=== PATIENT | male | born 1945 | race Asian ===

== ENCOUNTER 2021-12-17 15:56 | Emergency (ER) | payer OTHER, SELFPAY ==
--- NOTE | ~2021-12-17 | CT_ITS ---
EXAMINATION: CT HEAD WITHOUT CONTRAST CLINICAL INFORMATION: Acute mental status change. Rule out stroke. COMPARISON: None TECHNIQUE: Contiguous axial imaging was performed from the skull base to vertex without intravenous administration of contrast. This CT examination was performed using dose optimization techniques as appropriate, variously including the following: *Automated exposure control *Adjustment of mA and/or kV according to patient size (this includes techniques or standardized protocols for targeted exams where dose is matched to indication/reason for exam; i.e. extremities or head) *Use of iterative reconstruction technique DLP: 692 mGy-cm FINDINGS: There is no evidence of an extra-axial collection. There is no evidence of intra-axial or extra-axial hemorrhage. The ventricles and extra-axial CSF spaces are prominent suggestive of generalized atrophy. There is nonspecific periventricular white matter disease. No mass, mass effect or infarct is seen. Review of bone windows is normal. Paranasal sinuses, mastoid air cells and middle ears are clear. CT/CT head/brain wo con IMPRESSION: No acute intracranial findings. Generalized atrophy and nonspecific periventricular white matter disease. Findings were communicated to Denisha Pelaez by telephone on 12/19/2021 at 3:48 PM.
--- NOTE | 2021-12-17 16:49 | ED_ITS ---
HPI - General Adult General Chief complaint: ETOH/Substance Use <MADELINE Lundberg Last Filed: 12/18/21 02:38> Stated complaint: SEC 12 BY [facility],ALCOHOLISM,NON MED COMPLIANT PER EMS <MADELINE Lundberg Last Filed: 12/18/21 02:38> Time Seen by Provider: 12/17/21 16:35 <MADELINE Lundberg - Last Filed: 12/18/21 02:38> Source: patient <MADELINE Lundberg Last Filed: 12/18/21 02:38> Mode of arrival: ambulatory <MADELINE Lundberg Last Filed: 12/18/21 02:38> Limitations: no limitations <MADELINE Lundberg Last Filed: 12/18/21 02:38> History of Present Illness HPI narrative: 76-year-old mother history of alcoholism presents to the ED for drinking alcohol and not being compliant with his psych medications. Patient was section by [facility] for evaluation. Patient denies any suicidal homicidal ideation. Patient denies any physical complaints. Patient admits to drinking alcohol today and regularly. Patient able to care for himself at home. <MADELINE Lundberg Last Filed: 12/18/21 02:38> Related Data Home medications: Home Medications Medication Instructions Recorded Confirmed No Known Home Meds 12/18/21 12/18/21 <MADELINE Lundberg - Last Filed: 12/18/21 02:38> Allergies/adverse reactions: Allergies Allergy/AdvReac Type Severity Reaction Status Date / Time No Known Allergies Allergy Verified 12/17/21 16:38 <MADELINE Lundberg Last Filed: 12/18/21 02:38> Review of Systems Review of Systems: Drinking alcohol not compliant with meds <MADELINE Lundberg Last Filed: 12/18/21 02:38> Yes all other systems are reviewed and are negative <MADELINE Lundberg Last Filed: 12/18/21 02:38> [facility] Social History Social History: Social History Alcohol intake: current Patient Tobacco Use Status: Current everyday Tobacco user Use of substances other than those prescribed or required for medical reasons: No Advance Directives: No Advance Directives Information Provided: No <MADELINE Lundberg Last Filed: 12/18/21 02:38> Physical Exam ED Vital Signs: Vital Signs - 24 hr 12/19/21 19:19 12/19/21 22:01 12/19/21 23:32 Temperature 98.1 F 98.3 F Pulse Rate 103 H 100 116 H Respiratory Rate 16 20 16 Blood Pressure 145/70 H 141/69 H 147/72 H Pulse Oximetry 97 97 97 Oxygen Delivery Method Room Air Room Air Room Air 12/20/21 07:49 12/20/21 11:44 Temperature Pulse Rate 100 105 H Respiratory Rate 16 18 Blood Pressure 138/74 150/68 H Pulse Oximetry 98 97 Oxygen Delivery Method Room Air Room Air BMI result Body Mass Index 27.4 <MADELINE Lundberg - Last Filed: 12/18/21 02:38> Vital Signs - 24 hr 12/19/21 19:19 12/19/21 22:01 12/19/21 23:32 Temperature 98.1 F 98.3 F Pulse Rate 103 H 100 116 H Respiratory Rate 16 20 16 Blood Pressure 145/70 H 141/69 H 147/72 H Pulse Oximetry 97 97 97 Oxygen Delivery Method Room Air Room Air Room Air 12/20/21 07:49 12/20/21 11:44 Temperature Pulse Rate 100 105 H Respiratory Rate 16 18 Blood Pressure 138/74 150/68 H Pulse Oximetry 98 97 Oxygen Delivery Method Room Air Room Air BMI result Body Mass Index 27.4 <MADELINE Elias - Last Filed: 12/18/21 11:26> Vital Signs - 24 hr 12/19/21 19:19 12/19/21 22:01 12/19/21 23:32 Temperature 98.1 F 98.3 F Pulse Rate 103 H 100 116 H Respiratory Rate 16 20 16 Blood Pressure 145/70 H 141/69 H 147/72 H Pulse Oximetry 97 97 97 Oxygen Delivery Method Room Air Room Air Room Air 12/20/21 07:49 12/20/21 11:44 Temperature Pulse Rate 100 105 H Respiratory Rate 16 18 Blood Pressure 138/74 150/68 H Pulse Oximetry 98 97 Oxygen Delivery Method Room Air Room Air BMI result Body Mass Index 27.4 <Connie Conrteras NP - Last Filed: 12/19/21 12:34> Vital Signs - 24 hr 12/19/21 19:19 12/19/21 22:01 12/19/21 23:32 Temperature 98.1 F 98.3 F Pulse Rate 103 H 100 116 H Respiratory Rate 16 20 16 Blood Pressure 145/70 H 141/69 H 147/72 H Pulse Oximetry 97 97 97 Oxygen Delivery Method Room Air Room Air Room Air 12/20/21 07:49 12/20/21 11:44 Temperature Pulse Rate 100 105 H Respiratory Rate 16 18 Blood Pressure 138/74 150/68 H Pulse Oximetry 98 97 Oxygen Delivery Method Room Air Room Air BMI result Body Mass Index 27.4 <MADELINE Pina Last Filed: 12/20/21 11:58> Const General: cooperative, healthy appearing, comfortable, no acute distress, well de veloped, alert, awake and Physically active <MADELINE Lundberg Last Filed: 12/18/21 02:38> Orientation/consciousness: patient oriented x3 <MADELINE Lundberg Last Filed: 12/18/21 02:38> HENMT Head: Yes normal to inspection, Yes No palpable skull fracture present, Yes normocephalic, Yes atraumatic, No abrasion, No Acrocyanosis present, No Jackson's sign, No contusion, No cranial bruits, No hematoma, No laceration, No occipital foramen tenderness, No palpable skull fracture, No raccoon eyes, No scalp lesion, No scalp tenderness, No Temporal artery tenderness present and No periorbital ecchymosis <MADELINE Lundberg Last Filed: 12/18/21 02:38> Eyes General: appearance normal, both eyes and all related structures <MADELINE Lundberg Last Filed: 12/18/21 02:38> Neck Neck: Yes normal visual inspection, Yes full ROM, Yes no lymphadenopathy, Yes no meningeal signs, Yes trachea midline, Yes supple, No anterior neck swelling and No tender <MADELINE Lundberg Last Filed: 12/18/21 02:38> Chest Chest palpation & inspection: normal inspection of the chest and normal palpation of entire chest wall <MADELINE Lundberg Last Filed: 12/18/21 02:38> Resp Effort & Inspection: normal respiratory effort and able to speak in complete sentences <MADELINE Lundberg Last Filed: 12/18/21 02:38> Auscultation: clear to auscultation bilaterally <MADELINE Lundberg Last Filed: 12/18/21 02:38> Cardio Jugular venous distension: no JVD <MADELINE Lundberg Last Filed: 12/18/21 02:38> Heart sounds: S1 normal heart sound present and S2 normal heart sound present <MADELINE Lundberg Last Filed: 12/18/21 02:38> GI Inspection: Yes normal to inspection and No abdominal wall ecchymosis <MADELINE Lundberg Last Filed: 12/18/21 02:38> Palpation (GI): Soft to palpation, not firm, nontender, no guarding and not rigid <MADELINE Lundberg Last Filed: 12/18/21 02:38> General: No CVA tenderness and Yes no CVA tenderness <MADELINE Lundberg Last Filed: 12/18/21 02:38> Back/Spine/Pelvis Back: no CVA tenderness, No CVA tenderness and No back tenderness <MADELINE Lundberg Last Filed: 12/18/21 02:38> Skin General skin exam: no rashes or lesions noted and elasticity normal <MADELINE Lundberg Last Filed: 12/18/21 02:38> Neuro General: patient oriented x3, gait normal, no meningeal signs and CN's II-XI intact bilaterally <MADELINE Lundberg Last Filed: 12/18/21 02:38> Cranial nerves: Yes CN's II-XII intact bilaterally <MADELINE Lundberg Last Filed: 12/18/21 02:38> Extrem General: Yes normal to inspection and Yes full ROM <MADELINE Lundberg Last Filed: 12/18/21 02:38> Psych Appearance: grossly normal, well kempt and not disheveled <MADELINE Lundberg Last Filed: 12/18/21 02:38> Course Course Course Narrative: Patient will have labs ordered. Crisis consult placed. <MADELINE Lundberg Last Filed: 12/18/21 02:38> Reevaluation(s) Reevaluation #1: labs shows anemia. Patient is an acoholic which contribute to the anemai. patient denies any rectal bleeding, vomitting, blood, or abdominal pain. Whole body examined and negative for signs of bleeding, petechiae, pupura, or ecchymosis. Waiting for [facility] evaluation. Patient complaining of left ear pain. Exam of left ear shows erythema of ear canal. cortisporin ordered <MADELINE Lundberg - Last Filed: 12/18/21 02:38> Time: 02:35 <MADELINE Lundberg - Last Filed: 12/18/21 02:38> Reevaluation #2: Addendum: 12/18/21--Physicain observation continued. Patient is a [facility] inpatient bed search from [facility]. Labs reviewed. Will continue to monitor for EtOH withdrawal/CIWA's <MADELINE Elias - Last Filed: 12/18/21 11:26> Time: 11:19 <MADELINE Elias - Last Filed: 12/18/21 11:26> Reevaluation #3: Addendum to chart-vital signs are stable. Patient is resting comfortably. No complaints from nursing overnight. Reviewed labs. Patient has some anemia which I believe is chronic and secondary to alcohol abuse. He is pending a psychiatric consultation to evaluate for capacity. I spoke to CM and they are agreeable to this. <Connie Contreras NP - Last Filed: 12/19/21 12:34> Time: 11:55 <MADELINE Pina - Last Filed: 12/20/21 11:58> Additional Reevaluation(s): Physician observation is continued. No acute overnight events. Patient has been seen by Psychiatry, awaiting their evaluation and recommendations. It is unclear if he has decisional capacity. Case management is involved. No evidence of active alcohol withdrawal at this time. CIWA 0. Will continue monitor. <MADELINE Pina - Last Filed: 12/20/21 11:58> Medical Decision Making MDM Narrative Medical decision making narrative: ALocholism. NOt taking psych meds <MADELINE Lundberg - Last Filed: 12/18/21 02:38> Lab Data Result diagrams: : 12/17/21 18:07 12/17/21 18:07 <MADELINE Lundberg - Last Filed: 12/18/21 02:38> Labs: Lab Results 12/17/21 12/17/21 12/17/21 Range/Units 17:21 17:22 18:07 WBC 5.6 (4.8-10.8) X10*3/uL RBC 3.14 L (4.60-5.80) X10*6/uL Hgb 8.1 L (14.0-18.0) g/dl Hct 26.9 L (42.0-52.0) % MCV 85.7 (80.0-98.0) fL MCH 25.8 L (27.0-33.0) pg MCHC 30.1 L (31.0-36.0) g/dl RDW 17.9 H (11.0-16.0) % Plt Count 274 (160-400) X10*3/uL MPV 8.8 L (9.4-12.4) fL Immature Gran % (Auto) 0.2 (0.0-0.4) % Neut % (Auto) 36.3 L (45-73) % Lymph % (Auto) 52.3 H (20-40) % [place] % (Auto) 5.0 (2-11) % Eos % (Auto) 4.8 H (0-4) % Baso % (Auto) 1.4 (0-2) % Lymph # (Auto) 2.9 (1.2-4.9) X10*3/uL [place] # (Auto) 0.3 (0.1-1.2) X10*3/uL Eos # (Auto) 0.3 (0.0-0.4) X10*3/uL Baso # (Auto) 0.1 (0.0-0.2) X10*3/uL Abs Immat Gran (auto) 0.01 (0.00-0.03) X10*3/uL Absolute Neuts (auto) 2.0 (2.0-8.3) x10*3/uL Absolute Nucleated RBC 0.000 (0.0-0.012) X10*3/uL Nucleated RBC % (auto) 0.0 (0.0-0.2) /100WBC Sodium (135-145) mmol/L Potassium (3.3-5.1) mmol/L Chloride (96-108) mmol/L Carbon Dioxide (22-29) mmol/L Anion Gap (12-20) BUN (9-16) mg/dL Creatinine (0.5-1.4) mg/dL Estim Creat Clear Calc Estimated GFR Random Glucose (60-115) mg/dL Estimat Average Glucose mg/dL Hemoglobin A1c % % Calcium (8.4-10.2) mg/dL Iron (45-160) mcg/dL TIBC (228-428) mcg/dL % Saturation (15-50) % Unsat Iron Binding ug/dL Total Bilirubin (0.0-1.0) mg/dL AST (5-37) U/L ALT (0-40) U/L Alkaline Phosphatase (39-117) U/L Total Protein (6.5-8.0) g/dL Albumin (3.5-5.0) g/dL Triglycerides mg/dL Cholesterol mg/dL LDL Cholesterol, Calc mg/dl HDL Cholesterol mg/dL Vitamin B12 (200-900) pg/mL Folate (> or = 4.0) ng/mL Urine Color YELLOW Urine Appearance CLEAR Urine pH 6.0 (5.0-8.0) Ur Specific Rhodes 1.015 (1.005-1.025) Urine Protein 2+ H (NEG-TRACE) MG/DL Urine Glucose (UA) NEG (NEG) MG/DL Urine Ketones NEG (NEG) MG/DL Urine Blood TRACE (NEG) Urine Nitrite NEG (NEG) Ur Leukocyte Esterase NEG (NEG) Urine RBC 1-4 (0) /HPF Urine WBC 0-2 (0-4) /HPF Ur Squamous Epith Cells 1+ /LPF Urine Bacteria NONE /LPF Urine Opiates Screen Not Detected (Not Detect) Urine Fentanyl Screen Not Detected (Not Detect) Ur Barbiturates Screen Not Detected (Not Detect) Ur Phencyclidine Scrn Not Detected (Not Detect) Ur Amphetamines Screen Not Detected (Not Detect) U Benzodiazepines Scrn Not Detected (Not Detect) Urine Cocaine Screen Not Detected (Not Detect) U Marijuana (THC) Screen Not Detected (Not Detect) Ethyl Alcohol mg/dL T.pallidum Ab (EIA) (Nonreactive) COVID-19 (ALEJO) (Negative) COVID-19 Clin Com 12/17/21 12/17/21 12/17/21 Range/Units 18:07 18:07 18:07 WBC (4.8-10.8) X10*3/uL RBC (4.60-5.80) X10*6/uL Hgb (14.0-18.0) g/dl Hct (42.0-52.0) % MCV (80.0-98.0) fL MCH (27.0-33.0) pg MCHC (31.0-36.0) g/dl RDW (11.0-16.0) % Plt Count (160-400) X10*3/uL MPV (9.4-12.4) fL Immature Gran % (Auto) (0.0-0.4) % Neut % (Auto) (45-73) % Lymph % (Auto) (20-40) % [place] % (Auto) (2-11) % Eos % (Auto) (0-4) % Baso % (Auto) (0-2) % Lymph # (Auto) (1.2-4.9) X10*3/uL [place] # (Auto) (0.1-1.2) X10*3/uL Eos # (Auto) (0.0-0.4) X10*3/uL Baso # (Auto) (0.0-0.2) X10*3/uL Abs Immat Gran (auto) (0.00-0.03) X10*3/uL Absolute Neuts (auto) (2.0-8.3) x10*3/uL Absolute Nucleated RBC (0.0-0.012) X10*3/uL Nucleated RBC % (auto) (0.0-0.2) /100WBC Sodium 136 (135-145) mmol/L Potassium 4.3 (3.3-5.1) mmol/L Chloride 105 (96-108) mmol/L Carbon Dioxide 16 L (22-29) mmol/L Anion Gap 19 (12-20) BUN 21 H (9-16) mg/dL Creatinine 1.03 (0.5-1.4) mg/dL Estim Creat Clear Calc TNP Estimated GFR > 60 Random Glucose 81 (60-115) mg/dL Estimat Average Glucose mg/dL Hemoglobin A1c % % Calcium 8.4 (8.4-10.2) mg/dL Iron (45-160) mcg/dL TIBC (228-428) mcg/dL % Saturation (15-50) % Unsat Iron Binding ug/dL Total Bilirubin 0.3 (0.0-1.0) mg/dL AST 67 H (5-37) U/L ALT 35 (0-40) U/L Alkaline Phosphatase 149 H (39-117) U/L Total Protein 10.6 H (6.5-8.0) g/dL Albumin 2.7 L (3.5-5.0) g/dL Triglycerides mg/dL Cholesterol mg/dL LDL Cholesterol, Calc mg/dl HDL Cholesterol mg/dL Vitamin B12 (200-900) pg/mL Folate (> or = 4.0) ng/mL Urine Color Urine Appearance Urine pH (5.0-8.0) Ur Specific [place] (1.005-1.025) Urine Protein (NEG-TRACE) MG/DL Urine Glucose (UA) (NEG) MG/DL Urine Ketones (NEG) MG/DL Urine Blood (NEG) Urine Nitrite (NEG) Ur Leukocyte Esterase (NEG) Urine RBC (0) /HPF Urine WBC (0-4) /HPF Ur Squamous Epith Cells /LPF Urine Bacteria /LPF Urine Opiates Screen (Not Detect) Urine Fentanyl Screen (Not Detect) Ur Barbiturates Screen (Not Detect) Ur Phencyclidine Scrn (Not Detect) Ur Amphetamines Screen (Not Detect) U Benzodiazepines Scrn (Not Detect) Urine Cocaine Screen (Not Detect) U Marijuana (THC) Screen (Not Detect) Ethyl Alcohol 159 mg/dL T.pallidum Ab (EIA) (Nonreactive) COVID-19 (ALEJO) Negative (Negative) COVID-19 Clin Com See Note 12/19/21 12/19/21 12/19/21 Range/Units 12:43 12:43 12:43 WBC (4.8-10.8) X10*3/uL RBC (4.60-5.80) X10*6/uL Hgb (14.0-18.0) g/dl Hct (42.0-52.0) % MCV (80.0-98.0) fL MCH (27.0-33.0) pg MCHC (31.0-36.0) g/dl RDW (11.0-16.0) % Plt Count (160-400) X10*3/uL MPV (9.4-12.4) fL Immature Gran % (Auto) (0.0-0.4) % Neut % (Auto) (45-73) % Lymph % (Auto) (20-40) % [place] % (Auto) (2-11) % Eos % (Auto) (0-4) % Baso % (Auto) (0-2) % Lymph # (Auto) (1.2-4.9) X10*3/uL [place] # (Auto) (0.1-1.2) X10*3/uL Eos # (Auto) (0.0-0.4) X10*3/uL Baso # (Auto) (0.0-0.2) X10*3/uL Abs Immat Gran (auto) (0.00-0.03) X10*3/uL Absolute Neuts (auto) (2.0-8.3) x10*3/uL Absolute Nucleated RBC (0.0-0.012) X10*3/uL Nucleated RBC % (auto) (0.0-0.2) /100WBC Sodium (135-145) mmol/L Potassium (3.3-5.1) mmol/L Chloride (96-108) mmol/L Carbon Dioxide (22-29) mmol/L Anion Gap (12-20) BUN (9-16) mg/dL Creatinine (0.5-1.4) mg/dL Estim Creat Clear Calc Estimated GFR Random Glucose (60-115) mg/dL Estimat Average Glucose 108 mg/dL Hemoglobin A1c % 5.4 % Calcium (8.4-10.2) mg/dL Iron 21 L (45-160) mcg/dL TIBC 362 (228-428) mcg/dL % Saturation 6 L (15-50) % Unsat Iron Binding 341 ug/dL Total Bilirubin (0.0-1.0) mg/dL AST (5-37) U/L ALT (0-40) U/L Alkaline Phosphatase (39-117) U/L Total Protein (6.5-8.0) g/dL Albumin (3.5-5.0) g/dL Triglycerides 127 mg/dL Cholesterol 156 mg/dL LDL Cholesterol, Calc 93 mg/dl HDL Cholesterol 38 mg/dL Vitamin B12 652 (200-900) pg/mL Folate 11.2 (> or = 4.0) ng/mL Urine Color Urine Appearance Urine pH (5.0-8.0) Ur Specific [place] (1.005-1.025) Urine Protein (NEG-TRACE) MG/DL Urine Glucose (UA) (NEG) MG/DL Urine Ketones (NEG) MG/DL Urine Blood (NEG) Urine Nitrite (NEG) Ur Leukocyte Esterase (NEG) Urine RBC (0) /HPF Urine WBC (0-4) /HPF Ur Squamous Epith Cells /LPF Urine Bacteria /LPF Urine Opiates Screen (Not Detect) Urine Fentanyl Screen (Not Detect) Ur Barbiturates Screen (Not Detect) Ur Phencyclidine Scrn (Not Detect) Ur Amphetamines Screen (Not Detect) U Benzodiazepines Scrn (Not Detect) Urine Cocaine Screen (Not Detect) U Marijuana (THC) Screen (Not Detect) Ethyl Alcohol mg/dL T.pallidum Ab (EIA) (Nonreactive) COVID-19 (ALEJO) (Negative) COVID-19 Clin Com 12/19/21 Range/Units 12:43 WBC (4.8-10.8) X10*3/uL RBC (4.60-5.80) X10*6/uL Hgb (14.0-18.0) g/dl Hct (42.0-52.0) % MCV (80.0-98.0) fL MCH (27.0-33.0) pg MCHC (31.0-36.0) g/dl RDW (11.0-16.0) % Plt Count (160-400) X10*3/uL MPV (9.4-12.4) fL Immature Gran % (Auto) (0.0-0.4) % Neut % (Auto) (45-73) % Lymph % (Auto) (20-40) % [place] % (Auto) (2-11) % Eos % (Auto) (0-4) % Baso % (Auto) (0-2) % Lymph # (Auto) (1.2-4.9) X10*3/uL [place] # (Auto) (0.1-1.2) X10*3/uL Eos # (Auto) (0.0-0.4) X10*3/uL Baso # (Auto) (0.0-0.2) X10*3/uL Abs Immat Gran (auto) (0.00-0.03) X10*3/uL Absolute Neuts (auto) (2.0-8.3) x10*3/uL Absolute Nucleated RBC (0.0-0.012) X10*3/uL Nucleated RBC % (auto) (0.0-0.2) /100WBC Sodium (135-145) mmol/L Potassium (3.3-5.1) mmol/L Chloride (96-108) mmol/L Carbon Dioxide (22-29) mmol/L Anion Gap (12-20) BUN (9-16) mg/dL Creatinine (0.5-1.4) mg/dL Estim Creat Clear Calc Estimated GFR Random Glucose (60-115) mg/dL Estimat Average Glucose mg/dL Hemoglobin A1c % % Calcium (8.4-10.2) mg/dL Iron (45-160) mcg/dL TIBC (228-428) mcg/dL % Saturation (15-50) % Unsat Iron Binding ug/dL Total Bilirubin (0.0-1.0) mg/dL AST (5-37) U/L ALT (0-40) U/L Alkaline Phosphatase (39-117) U/L Total Protein (6.5-8.0) g/dL Albumin (3.5-5.0) g/dL Triglycerides mg/dL Cholesterol mg/dL LDL Cholesterol, Calc mg/dl HDL Cholesterol mg/dL Vitamin B12 (200-900) pg/mL Folate (> or = 4.0) ng/mL Urine Color Urine Appearance Urine pH (5.0-8.0) Ur Specific [place] (1.005-1.025) Urine Protein (NEG-TRACE) MG/DL Urine Glucose (UA) (NEG) MG/DL Urine Ketones (NEG) MG/DL Urine Blood (NEG) Urine Nitrite (NEG) Ur Leukocyte Esterase (NEG) Urine RBC (0) /HPF Urine WBC (0-4) /HPF Ur Squamous Epith Cells /LPF Urine Bacteria /LPF Urine Opiates Screen (Not Detect) Urine Fentanyl Screen (Not Detect) Ur Barbiturates Screen (Not Detect) Ur Phencyclidine Scrn (Not Detect) Ur Amphetamines Screen (Not Detect) U Benzodiazepines Scrn (Not Detect) Urine Cocaine Screen (Not Detect) U Marijuana (THC) Screen (Not Detect) Ethyl Alcohol mg/dL T.pallidum Ab (EIA) Nonreactive (Nonreactive) COVID-19 (ALEJO) (Negative) COVID-19 Clin Com <MADELINE Lundberg - Last Filed: 12/18/21 02:38> Lab Results 12/17/21 12/17/21 12/17/21 Range/Units 17:21 17:22 18:07 WBC 5.6 (4.8-10.8) X10*3/uL RBC 3.14 L (4.60-5.80) X10*6/uL Hgb 8.1 L (14.0-18.0) g/dl Hct 26.9 L (42.0-52.0) % MCV 85.7 (80.0-98.0) fL MCH 25.8 L (27.0-33.0) pg MCHC 30.1 L (31.0-36.0) g/dl RDW 17.9 H (11.0-16.0) % Plt Count 274 (160-400) X10*3/uL MPV 8.8 L (9.4-12.4) fL Immature Gran % (Auto) 0.2 (0.0-0.4) % Neut % (Auto) 36.3 L (45-73) % Lymph % (Auto) 52.3 H (20-40) % [place] % (Auto) 5.0 (2-11) % Eos % (Auto) 4.8 H (0-4) % Baso % (Auto) 1.4 (0-2) % Lymph # (Auto) 2.9 (1.2-4.9) X10*3/uL [place] # (Auto) 0.3 (0.1-1.2) X10*3/uL Eos # (Auto) 0.3 (0.0-0.4) X10*3/uL Baso # (Auto) 0.1 (0.0-0.2) X10*3/uL Abs Immat Gran (auto) 0.01 (0.00-0.03) X10*3/uL Absolute Neuts (auto) 2.0 (2.0-8.3) x10*3/uL Absolute Nucleated RBC 0.000 (0.0-0.012) X10*3/uL Nucleated RBC % (auto) 0.0 (0.0-0.2) /100WBC Sodium (135-145) mmol/L Potassium (3.3-5.1) mmol/L Chloride (96-108) mmol/L Carbon Dioxide (22-29) mmol/L Anion Gap (12-20) BUN (9-16) mg/dL Creatinine (0.5-1.4) mg/dL Estim Creat Clear Calc Estimated GFR Random Glucose (60-115) mg/dL Estimat Average Glucose mg/dL Hemoglobin A1c % % Calcium (8.4-10.2) mg/dL Iron (45-160) mcg/dL TIBC (228-428) mcg/dL % Saturation (15-50) % Unsat Iron Binding ug/dL Total Bilirubin (0.0-1.0) mg/dL AST (5-37) U/L ALT (0-40) U/L Alkaline Phosphatase (39-117) U/L Total Protein (6.5-8.0) g/dL Albumin (3.5-5.0) g/dL Triglycerides mg/dL Cholesterol mg/dL LDL Cholesterol, Calc mg/dl HDL Cholesterol mg/dL Vitamin B12 (200-900) pg/mL Folate (> or = 4.0) ng/mL Urine Color YELLOW Urine Appearance CLEAR Urine pH 6.0 (5.0-8.0) Ur Specific [place] 1.015 (1.005-1.025) Urine Protein 2+ H (NEG-TRACE) MG/DL Urine Glucose (UA) NEG (NEG) MG/DL Urine Ketones NEG (NEG) MG/DL Urine Blood TRACE (NEG) Urine Nitrite NEG (NEG) Ur Leukocyte Esterase NEG (NEG) Urine RBC 1-4 (0) /HPF Urine WBC 0-2 (0-4) /HPF Ur Squamous Epith Cells 1+ /LPF Urine Bacteria NONE /LPF Urine Opiates Screen Not Detected (Not Detect) Urine Fentanyl Screen Not Detected (Not Detect) Ur Barbiturates Screen Not Detected (Not Detect) Ur Phencyclidine Scrn Not Detected (Not Detect) Ur Amphetamines Screen Not Detected (Not Detect) U Benzodiazepines Scrn Not Detected (Not Detect) Urine Cocaine Screen Not Detected (Not Detect) U Marijuana (THC) Screen Not Detected (Not Detect) Ethyl Alcohol mg/dL T.pallidum Ab (EIA) (Nonreactive) COVID-19 (ALEJO) (Negative) COVID-19 Clin Com 12/17/21 12/17/21 12/17/21 Range/Units 18:07 18:07 18:07 WBC (4.8-10.8) X10*3/uL RBC (4.60-5.80) X10*6/uL Hgb (14.0-18.0) g/dl Hct (42.0-52.0) % MCV (80.0-98.0) fL MCH (27.0-33.0) pg MCHC (31.0-36.0) g/dl RDW (11.0-16.0) % Plt Count (160-400) X10*3/uL MPV (9.4-12.4) fL Immature Gran % (Auto) (0.0-0.4) % Neut % (Auto) (45-73) % Lymph % (Auto) (20-40) % [place] % (Auto) (2-11) % Eos % (Auto) (0-4) % Baso % (Auto) (0-2) % Lymph # (Auto) (1.2-4.9) X10*3/uL [place] # (Auto) (0.1-1.2) X10*3/uL Eos # (Auto) (0.0-0.4) X10*3/uL Baso # (Auto) (0.0-0.2) X10*3/uL Abs Immat Gran (auto) (0.00-0.03) X10*3/uL Absolute Neuts (auto) (2.0-8.3) x10*3/uL Absolute Nucleated RBC (0.0-0.012) X10*3/uL Nucleated RBC % (auto) (0.0-0.2) /100WBC Sodium 136 (135-145) mmol/L Potassium 4.3 (3.3-5.1) mmol/L Chloride 105 (96-108) mmol/L Carbon Dioxide 16 L (22-29) mmol/L Anion Gap 19 (12-20) BUN 21 H (9-16) mg/dL Creatinine 1.03 (0.5-1.4) mg/dL Estim Creat Clear Calc TNP Estimated GFR > 60 Random Glucose 81 (60-115) mg/dL Estimat Average Glucose mg/dL Hemoglobin A1c % % Calcium 8.4 (8.4-10.2) mg/dL Iron (45-160) mcg/dL TIBC (228-428) mcg/dL % Saturation (15-50) % Unsat Iron Binding ug/dL Total Bilirubin 0.3 (0.0-1.0) mg/dL AST 67 H (5-37) U/L ALT 35 (0-40) U/L Alkaline Phosphatase 149 H (39-117) U/L Total Protein 10.6 H (6.5-8.0) g/dL Albumin 2.7 L (3.5-5.0) g/dL Triglycerides mg/dL Cholesterol mg/dL LDL Cholesterol, Calc mg/dl HDL Cholesterol mg/dL Vitamin B12 (200-900) pg/mL Folate (> or = 4.0) ng/mL Urine Color Urine Appearance Urine pH (5.0-8.0) Ur Specific [place] (1.005-1.025) Urine Protein (NEG-TRACE) MG/DL Urine Glucose (UA) (NEG) MG/DL Urine Ketones (NEG) MG/DL Urine Blood (NEG) Urine Nitrite (NEG) Ur Leukocyte Esterase (NEG) Urine RBC (0) /HPF Urine WBC (0-4) /HPF Ur Squamous Epith Cells /LPF Urine Bacteria /LPF Urine Opiates Screen (Not Detect) Urine Fentanyl Screen (Not Detect) Ur Barbiturates Screen (Not Detect) Ur Phencyclidine Scrn (Not Detect) Ur Amphetamines Screen (Not Detect) U Benzodiazepines Scrn (Not Detect) Urine Cocaine Screen (Not Detect) U Marijuana (THC) Screen (Not Detect) Ethyl Alcohol 159 mg/dL T.pallidum Ab (EIA) (Nonreactive) COVID-19 ([facility]) Negative (Negative) COVID-19 Clin Com See Note 12/19/21 12/19/21 12/19/21 Range/Units 12:43 12:43 12:43 WBC (4.8-10.8) X10*3/uL RBC (4.60-5.80) X10*6/uL Hgb (14.0-18.0) g/dl Hct (42.0-52.0) % MCV (80.0-98.0) fL MCH (27.0-33.0) pg MCHC (31.0-36.0) g/dl RDW (11.0-16.0) % Plt Count (160-400) X10*3/uL MPV (9.4-12.4) fL Immature Gran % (Auto) (0.0-0.4) % Neut % (Auto) (45-73) % Lymph % (Auto) (20-40) % [place] % (Auto) (2-11) % Eos % (Auto) (0-4) % Baso % (Auto) (0-2) % Lymph # (Auto) (1.2-4.9) X10*3/uL [place] # (Auto) (0.1-1.2) X10*3/uL Eos # (Auto) (0.0-0.4) X10*3/uL Baso # (Auto) (0.0-0.2) X10*3/uL Abs Immat Gran (auto) (0.00-0.03) X10*3/uL Absolute Neuts (auto) (2.0-8.3) x10*3/uL Absolute Nucleated RBC (0.0-0.012) X10*3/uL Nucleated RBC % (auto) (0.0-0.2) /100WBC Sodium (135-145) mmol/L Potassium (3.3-5.1) mmol/L Chloride (96-108) mmol/L Carbon Dioxide (22-29) mmol/L Anion Gap (12-20) BUN (9-16) mg/dL Creatinine (0.5-1.4) mg/dL Estim Creat Clear Calc Estimated GFR Random Glucose (60-115) mg/dL Estimat Average Glucose 108 mg/dL Hemoglobin A1c % 5.4 % Calcium (8.4-10.2) mg/dL Iron 21 L (45-160) mcg/dL TIBC 362 (228-428) mcg/dL % Saturation 6 L (15-50) % Unsat Iron Binding 341 ug/dL Total Bilirubin (0.0-1.0) mg/dL AST (5-37) U/L ALT (0-40) U/L Alkaline Phosphatase (39-117) U/L Total Protein (6.5-8.0) g/dL Albumin (3.5-5.0) g/dL Triglycerides 127 mg/dL Cholesterol 156 mg/dL LDL Cholesterol, Calc 93 mg/dl HDL Cholesterol 38 mg/dL Vitamin B12 652 (200-900) pg/mL Folate 11.2 (> or = 4.0) ng/mL Urine Color Urine Appearance Urine pH (5.0-8.0) Ur Specific Rhodes (1.005-1.025) Urine Protein (NEG-TRACE) MG/DL Urine Glucose (UA) (NEG) MG/DL Urine Ketones (NEG) MG/DL Urine Blood (NEG) Urine Nitrite (NEG) Ur Leukocyte Esterase (NEG) Urine RBC (0) /HPF Urine WBC (0-4) /HPF Ur Squamous Epith Cells /LPF Urine Bacteria /LPF Urine Opiates Screen (Not Detect) Urine Fentanyl Screen (Not Detect) Ur Barbiturates Screen (Not Detect) Ur Phencyclidine Scrn (Not Detect) Ur Amphetamines Screen (Not Detect) U Benzodiazepines Scrn (Not Detect) Urine Cocaine Screen (Not Detect) U Marijuana (THC) Screen (Not Detect) Ethyl Alcohol mg/dL T.pallidum Ab (EIA) (Nonreactive) COVID-19 ([facility]) (Negative) COVID-19 Clin Com 12/19/21 Range/Units 12:43 WBC (4.8-10.8) X10*3/uL RBC (4.60-5.80) X10*6/uL Hgb (14.0-18.0) g/dl Hct (42.0-52.0) % MCV (80.0-98.0) fL MCH (27.0-33.0) pg MCHC (31.0-36.0) g/dl RDW (11.0-16.0) % Plt Count (160-400) X10*3/uL MPV (9.4-12.4) fL Immature Gran % (Auto) (0.0-0.4) % Neut % (Auto) (45-73) % Lymph % (Auto) (20-40) % [place] % (Auto) (2-11) % Eos % (Auto) (0-4) % Baso % (Auto) (0-2) % Lymph # (Auto) (1.2-4.9) X10*3/uL [place] # (Auto) (0.1-1.2) X10*3/uL Eos # (Auto) (0.0-0.4) X10*3/uL Baso # (Auto) (0.0-0.2) X10*3/uL Abs Immat Gran (auto) (0.00-0.03) X10*3/uL Absolute Neuts (auto) (2.0-8.3) x10*3/uL Absolute Nucleated RBC (0.0-0.012) X10*3/uL Nucleated RBC % (auto) (0.0-0.2) /100WBC Sodium (135-145) mmol/L Potassium (3.3-5.1) mmol/L Chloride (96-108) mmol/L Carbon Dioxide (22-29) mmol/L Anion Gap (12-20) BUN (9-16) mg/dL Creatinine (0.5-1.4) mg/dL Estim Creat Clear Calc Estimated GFR Random Glucose (60-115) mg/dL Estimat Average Glucose mg/dL Hemoglobin A1c % % Calcium (8.4-10.2) mg/dL Iron (45-160) mcg/dL TIBC (228-428) mcg/dL % Saturation (15-50) % Unsat Iron Binding ug/dL Total Bilirubin (0.0-1.0) mg/dL AST (5-37) U/L ALT (0-40) U/L Alkaline Phosphatase (39-117) U/L Total Protein (6.5-8.0) g/dL Albumin (3.5-5.0) g/dL Triglycerides mg/dL Cholesterol mg/dL LDL Cholesterol, Calc mg/dl HDL Cholesterol mg/dL Vitamin B12 (200-900) pg/mL Folate (> or = 4.0) ng/mL Urine Color Urine Appearance Urine pH (5.0-8.0) Ur Specific [place] (1.005-1.025) Urine Protein (NEG-TRACE) MG/DL Urine Glucose (UA) (NEG) MG/DL Urine Ketones (NEG) MG/DL Urine Blood (NEG) Urine Nitrite (NEG) Ur Leukocyte Esterase (NEG) Urine RBC (0) /HPF Urine WBC (0-4) /HPF Ur Squamous Epith Cells /LPF Urine Bacteria /LPF Urine Opiates Screen (Not Detect) Urine Fentanyl Screen (Not Detect) Ur Barbiturates Screen (Not Detect) Ur Phencyclidine Scrn (Not Detect) Ur Amphetamines Screen (Not Detect) U Benzodiazepines Scrn (Not Detect) Urine Cocaine Screen (Not Detect) U Marijuana (THC) Screen (Not Detect) Ethyl Alcohol mg/dL T.pallidum Ab (EIA) Nonreactive (Nonreactive) COVID-19 ([facility]) (Negative) COVID-19 Clin Com <MADELINE Elias - Last Filed: 12/18/21 11:26> Lab Results 12/17/21 12/17/21 12/17/21 Range/Units 17:21 17:22 18:07 WBC 5.6 (4.8-10.8) X10*3/uL RBC 3.14 L (4.60-5.80) X10*6/uL Hgb 8.1 L (14.0-18.0) g/dl Hct 26.9 L (42.0-52.0) % MCV 85.7 (80.0-98.0) fL MCH 25.8 L (27.0-33.0) pg MCHC 30.1 L (31.0-36.0) g/dl RDW 17.9 H (11.0-16.0) % Plt Count 274 (160-400) X10*3/uL MPV 8.8 L (9.4-12.4) fL Immature Gran % (Auto) 0.2 (0.0-0.4) % Neut % (Auto) 36.3 L (45-73) % Lymph % (Auto) 52.3 H (20-40) % [place] % (Auto) 5.0 (2-11) % Eos % (Auto) 4.8 H (0-4) % Baso % (Auto) 1.4 (0-2) % Lymph # (Auto) 2.9 (1.2-4.9) X10*3/uL [place] # (Auto) 0.3 (0.1-1.2) X10*3/uL Eos # (Auto) 0.3 (0.0-0.4) X10*3/uL Baso # (Auto) 0.1 (0.0-0.2) X10*3/uL Abs Immat Gran (auto) 0.01 (0.00-0.03) X10*3/uL Absolute Neuts (auto) 2.0 (2.0-8.3) x10*3/uL Absolute Nucleated RBC 0.000 (0.0-0.012) X10*3/uL Nucleated RBC % (auto) 0.0 (0.0-0.2) /100WBC Sodium (135-145) mmol/L Potassium (3.3-5.1) mmol/L Chloride (96-108) mmol/L Carbon Dioxide (22-29) mmol/L Anion Gap (12-20) BUN (9-16) mg/dL Creatinine (0.5-1.4) mg/dL Estim Creat Clear Calc Estimated GFR Random Glucose (60-115) mg/dL Estimat Average Glucose mg/dL Hemoglobin A1c % % Calcium (8.4-10.2) mg/dL Iron (45-160) mcg/dL TIBC (228-428) mcg/dL % Saturation (15-50) % Unsat Iron Binding ug/dL Total Bilirubin (0.0-1.0) mg/dL AST (5-37) U/L ALT (0-40) U/L Alkaline Phosphatase (39-117) U/L Total Protein (6.5-8.0) g/dL Albumin (3.5-5.0) g/dL Triglycerides mg/dL Cholesterol mg/dL LDL Cholesterol, Calc mg/dl HDL Cholesterol mg/dL Vitamin B12 (200-900) pg/mL Folate (> or = 4.0) ng/mL Urine Color YELLOW Urine Appearance CLEAR Urine pH 6.0 (5.0-8.0) Ur Specific [place] 1.015 (1.005-1.025) Urine Protein 2+ H (NEG-TRACE) MG/DL Urine Glucose (UA) NEG (NEG) MG/DL Urine Ketones NEG (NEG) MG/DL Urine Blood TRACE (NEG) Urine Nitrite NEG (NEG) Ur Leukocyte Esterase NEG (NEG) Urine RBC 1-4 (0) /HPF Urine WBC 0-2 (0-4) /HPF Ur Squamous Epith Cells 1+ /LPF Urine Bacteria NONE /LPF Urine Opiates Screen Not Detected (Not Detect) Urine Fentanyl Screen Not Detected (Not Detect) Ur Barbiturates Screen Not Detected (Not Detect) Ur Phencyclidine Scrn Not Detected (Not Detect) Ur Amphetamines Screen Not Detected (Not Detect) U Benzodiazepines Scrn Not Detected (Not Detect) Urine Cocaine Screen Not Detected (Not Detect) U Marijuana (THC) Screen Not Detected (Not Detect) Ethyl Alcohol mg/dL T.pallidum Ab (EIA) (Nonreactive) COVID-19 ([facility]) (Negative) COVID-19 Clin Com 12/17/21 12/17/21 12/17/21 Range/Units 18:07 18:07 18:07 WBC (4.8-10.8) X10*3/uL RBC (4.60-5.80) X10*6/uL Hgb (14.0-18.0) g/dl Hct (42.0-52.0) % MCV (80.0-98.0) fL MCH (27.0-33.0) pg MCHC (31.0-36.0) g/dl RDW (11.0-16.0) % Plt Count (160-400) X10*3/uL MPV (9.4-12.4) fL Immature Gran % (Auto) (0.0-0.4) % Neut % (Auto) (45-73) % Lymph % (Auto) (20-40) % [place] % (Auto) (2-11) % Eos % (Auto) (0-4) % Baso % (Auto) (0-2) % Lymph # (Auto) (1.2-4.9) X10*3/uL [place] # (Auto) (0.1-1.2) X10*3/uL Eos # (Auto) (0.0-0.4) X10*3/uL Baso # (Auto) (0.0-0.2) X10*3/uL Abs Immat Gran (auto) (0.00-0.03) X10*3/uL Absolute Neuts (auto) (2.0-8.3) x10*3/uL Absolute Nucleated RBC (0.0-0.012) X10*3/uL Nucleated RBC % (auto) (0.0-0.2) /100WBC Sodium 136 (135-145) mmol/L Potassium 4.3 (3.3-5.1) mmol/L Chloride 105 (96-108) mmol/L Carbon Dioxide 16 L (22-29) mmol/L Anion Gap 19 (12-20) BUN 21 H (9-16) mg/dL Creatinine 1.03 (0.5-1.4) mg/dL Estim Creat Clear Calc TNP Estimated GFR > 60 Random Glucose 81 (60-115) mg/dL Estimat Average Glucose mg/dL Hemoglobin A1c % % Calcium 8.4 (8.4-10.2) mg/dL Iron (45-160) mcg/dL TIBC (228-428) mcg/dL % Saturation (15-50) % Unsat Iron Binding ug/dL Total Bilirubin 0.3 (0.0-1.0) mg/dL AST 67 H (5-37) U/L ALT 35 (0-40) U/L Alkaline Phosphatase 149 H (39-117) U/L Total Protein 10.6 H (6.5-8.0) g/dL Albumin 2.7 L (3.5-5.0) g/dL Triglycerides mg/dL Cholesterol mg/dL LDL Cholesterol, Calc mg/dl HDL Cholesterol mg/dL Vitamin B12 (200-900) pg/mL Folate (> or = 4.0) ng/mL Urine Color Urine Appearance Urine pH (5.0-8.0) Ur Specific [place] (1.005-1.025) Urine Protein (NEG-TRACE) MG/DL Urine Glucose (UA) (NEG) MG/DL Urine Ketones (NEG) MG/DL Urine Blood (NEG) Urine Nitrite (NEG) Ur Leukocyte Esterase (NEG) Urine RBC (0) /HPF Urine WBC (0-4) /HPF Ur Squamous Epith Cells /LPF Urine Bacteria /LPF Urine Opiates Screen (Not Detect) Urine Fentanyl Screen (Not Detect) Ur Barbiturates Screen (Not Detect) Ur Phencyclidine Scrn (Not Detect) Ur Amphetamines Screen (Not Detect) U Benzodiazepines Scrn (Not Detect) Urine Cocaine Screen (Not Detect) U Marijuana (THC) Screen (Not Detect) Ethyl Alcohol 159 mg/dL T.pallidum Ab (EIA) (Nonreactive) COVID-19 ([facility]) Negative (Negative) COVID-19 Clin Com See Note 12/19/21 12/19/21 12/19/21 Range/Units 12:43 12:43 12:43 WBC (4.8-10.8) X10*3/uL RBC (4.60-5.80) X10*6/uL Hgb (14.0-18.0) g/dl Hct (42.0-52.0) % MCV (80.0-98.0) fL MCH (27.0-33.0) pg MCHC (31.0-36.0) g/dl RDW (11.0-16.0) % Plt Count (160-400) X10*3/uL MPV (9.4-12.4) fL Immature Gran % (Auto) (0.0-0.4) % Neut % (Auto) (45-73) % Lymph % (Auto) (20-40) % [place] % (Auto) (2-11) % Eos % (Auto) (0-4) % Baso % (Auto) (0-2) % Lymph # (Auto) (1.2-4.9) X10*3/uL [place] # (Auto) (0.1-1.2) X10*3/uL Eos # (Auto) (0.0-0.4) X10*3/uL Baso # (Auto) (0.0-0.2) X10*3/uL Abs Immat Gran (auto) (0.00-0.03) X10*3/uL Absolute Neuts (auto) (2.0-8.3) x10*3/uL Absolute Nucleated RBC (0.0-0.012) X10*3/uL Nucleated RBC % (auto) (0.0-0.2) /100WBC Sodium (135-145) mmol/L Potassium (3.3-5.1) mmol/L Chloride (96-108) mmol/L Carbon Dioxide (22-29) mmol/L Anion Gap (12-20) BUN (9-16) mg/dL Creatinine (0.5-1.4) mg/dL Estim Creat Clear Calc Estimated GFR Random Glucose (60-115) mg/dL Estimat Average Glucose 108 mg/dL Hemoglobin A1c % 5.4 % Calcium (8.4-10.2) mg/dL Iron 21 L (45-160) mcg/dL TIBC 362 (228-428) mcg/dL % Saturation 6 L (15-50) % Unsat Iron Binding 341 ug/dL Total Bilirubin (0.0-1.0) mg/dL AST (5-37) U/L ALT (0-40) U/L Alkaline Phosphatase (39-117) U/L Total Protein (6.5-8.0) g/dL Albumin (3.5-5.0) g/dL Triglycerides 127 mg/dL Cholesterol 156 mg/dL LDL Cholesterol, Calc 93 mg/dl HDL Cholesterol 38 mg/dL Vitamin B12 652 (200-900) pg/mL Folate 11.2 (> or = 4.0) ng/mL Urine Color Urine Appearance Urine pH (5.0-8.0) Ur Specific [place] (1.005-1.025) Urine Protein (NEG-TRACE) MG/DL Urine Glucose (UA) (NEG) MG/DL Urine Ketones (NEG) MG/DL Urine Blood (NEG) Urine Nitrite (NEG) Ur Leukocyte Esterase (NEG) Urine RBC (0) /HPF Urine WBC (0-4) /HPF Ur Squamous Epith Cells /LPF Urine Bacteria /LPF Urine Opiates Screen (Not Detect) Urine Fentanyl Screen (Not Detect) Ur Barbiturates Screen (Not Detect) Ur Phencyclidine Scrn (Not Detect) Ur Amphetamines Screen (Not Detect) U Benzodiazepines Scrn (Not Detect) Urine Cocaine Screen (Not Detect) U Marijuana (THC) Screen (Not Detect) Ethyl Alcohol mg/dL T.pallidum Ab (EIA) (Nonreactive) COVID-19 ([facility]) (Negative) COVID-19 Clin Com 12/19/21 Range/Units 12:43 WBC (4.8-10.8) X10*3/uL RBC (4.60-5.80) X10*6/uL Hgb (14.0-18.0) g/dl Hct (42.0-52.0) % MCV (80.0-98.0) fL MCH (27.0-33.0) pg MCHC (31.0-36.0) g/dl RDW (11.0-16.0) % Plt Count (160-400) X10*3/uL MPV (9.4-12.4) fL Immature Gran % (Auto) (0.0-0.4) % Neut % (Auto) (45-73) % Lymph % (Auto) (20-40) % [place] % (Auto) (2-11) % Eos % (Auto) (0-4) % Baso % (Auto) (0-2) % Lymph # (Auto) (1.2-4.9) X10*3/uL [place] # (Auto) (0.1-1.2) X10*3/uL Eos # (Auto) (0.0-0.4) X10*3/uL Baso # (Auto) (0.0-0.2) X10*3/uL Abs Immat Gran (auto) (0.00-0.03) X10*3/uL Absolute Neuts (auto) (2.0-8.3) x10*3/uL Absolute Nucleated RBC (0.0-0.012) X10*3/uL Nucleated RBC % (auto) (0.0-0.2) /100WBC Sodium (135-145) mmol/L Potassium (3.3-5.1) mmol/L Chloride (96-108) mmol/L Carbon Dioxide (22-29) mmol/L Anion Gap (12-20) BUN (9-16) mg/dL Creatinine (0.5-1.4) mg/dL Estim Creat Clear Calc Estimated GFR Random Glucose (60-115) mg/dL Estimat Average Glucose mg/dL Hemoglobin A1c % % Calcium (8.4-10.2) mg/dL Iron (45-160) mcg/dL TIBC (228-428) mcg/dL % Saturation (15-50) % Unsat Iron Binding ug/dL Total Bilirubin (0.0-1.0) mg/dL AST (5-37) U/L ALT (0-40) U/L Alkaline Phosphatase (39-117) U/L Total Protein (6.5-8.0) g/dL Albumin (3.5-5.0) g/dL Triglycerides mg/dL Cholesterol mg/dL LDL Cholesterol, Calc mg/dl HDL Cholesterol mg/dL Vitamin B12 (200-900) pg/mL Folate (> or = 4.0) ng/mL Urine Color Urine Appearance Urine pH (5.0-8.0) Ur Specific [place] (1.005-1.025) Urine Protein (NEG-TRACE) MG/DL Urine Glucose (UA) (NEG) MG/DL Urine Ketones (NEG) MG/DL Urine Blood (NEG) Urine Nitrite (NEG) Ur Leukocyte Esterase (NEG) Urine RBC (0) /HPF Urine WBC (0-4) /HPF Ur Squamous Epith Cells /LPF Urine Bacteria /LPF Urine Opiates Screen (Not Detect) Urine Fentanyl Screen (Not Detect) Ur Barbiturates Screen (Not Detect) Ur Phencyclidine Scrn (Not Detect) Ur Amphetamines Screen (Not Detect) U Benzodiazepines Scrn (Not Detect) Urine Cocaine Screen (Not Detect) U Marijuana (THC) Screen (Not Detect) Ethyl Alcohol mg/dL T.pallidum Ab (EIA) Nonreactive (Nonreactive) COVID-19 ([facility]) (Negative) COVID-19 Clin Com <Connie Contreras NP - Last Filed: 12/19/21 12:34> Lab Results 12/17/21 12/17/21 12/17/21 Range/Units 17:21 17:22 18:07 WBC 5.6 (4.8-10.8) X10*3/uL RBC 3.14 L (4.60-5.80) X10*6/uL Hgb 8.1 L (14.0-18.0) g/dl Hct 26.9 L (42.0-52.0) % MCV 85.7 (80.0-98.0) fL MCH 25.8 L (27.0-33.0) pg MCHC 30.1 L (31.0-36.0) g/dl RDW 17.9 H (11.0-16.0) % Plt Count 274 (160-400) X10*3/uL MPV 8.8 L (9.4-12.4) fL Immature Gran % (Auto) 0.2 (0.0-0.4) % Neut % (Auto) 36.3 L (45-73) % Lymph % (Auto) 52.3 H (20-40) % [place] % (Auto) 5.0 (2-11) % Eos % (Auto) 4.8 H (0-4) % Baso % (Auto) 1.4 (0-2) % Lymph # (Auto) 2.9 (1.2-4.9) X10*3/uL [place] # (Auto) 0.3 (0.1-1.2) X10*3/uL Eos # (Auto) 0.3 (0.0-0.4) X10*3/uL Baso # (Auto) 0.1 (0.0-0.2) X10*3/uL Abs Immat Gran (auto) 0.01 (0.00-0.03) X10*3/uL Absolute Neuts (auto) 2.0 (2.0-8.3) x10*3/uL Absolute Nucleated RBC 0.000 (0.0-0.012) X10*3/uL Nucleated RBC % (auto) 0.0 (0.0-0.2) /100WBC Sodium (135-145) mmol/L Potassium (3.3-5.1) mmol/L Chloride (96-108) mmol/L Carbon Dioxide (22-29) mmol/L Anion Gap (12-20) BUN (9-16) mg/dL Creatinine (0.5-1.4) mg/dL Estim Creat Clear Calc Estimated GFR Random Glucose (60-115) mg/dL Estimat Average Glucose mg/dL Hemoglobin A1c % % Calcium (8.4-10.2) mg/dL Iron (45-160) mcg/dL TIBC (228-428) mcg/dL % Saturation (15-50) % Unsat Iron Binding ug/dL Total Bilirubin (0.0-1.0) mg/dL AST (5-37) U/L ALT (0-40) U/L Alkaline Phosphatase (39-117) U/L Total Protein (6.5-8.0) g/dL Albumin (3.5-5.0) g/dL Triglycerides mg/dL Cholesterol mg/dL LDL Cholesterol, Calc mg/dl HDL Cholesterol mg/dL Vitamin B12 (200-900) pg/mL Folate (> or = 4.0) ng/mL Urine Color YELLOW Urine Appearance CLEAR Urine pH 6.0 (5.0-8.0) Ur Specific [place] 1.015 (1.005-1.025) Urine Protein 2+ H (NEG-TRACE) MG/DL Urine Glucose (UA) NEG (NEG) MG/DL Urine Ketones NEG (NEG) MG/DL Urine Blood TRACE (NEG) Urine Nitrite NEG (NEG) Ur Leukocyte Esterase NEG (NEG) Urine RBC 1-4 (0) /HPF Urine WBC 0-2 (0-4) /HPF Ur Squamous Epith Cells 1+ /LPF Urine Bacteria NONE /LPF Urine Opiates Screen Not Detected (Not Detect) Urine Fentanyl Screen Not Detected (Not Detect) Ur Barbiturates Screen Not Detected (Not Detect) Ur Phencyclidine Scrn Not Detected (Not Detect) Ur Amphetamines Screen Not Detected (Not Detect) U Benzodiazepines Scrn Not Detected (Not Detect) Urine Cocaine Screen Not Detected (Not Detect) U Marijuana (THC) Screen Not Detected (Not Detect) Ethyl Alcohol mg/dL T.pallidum Ab (EIA) (Nonreactive) COVID-19 ([facility]) (Negative) COVID-19 Clin Com 12/17/21 12/17/21 12/17/21 Range/Units 18:07 18:07 18:07 WBC (4.8-10.8) X10*3/uL RBC (4.60-5.80) X10*6/uL Hgb (14.0-18.0) g/dl Hct (42.0-52.0) % MCV (80.0-98.0) fL MCH (27.0-33.0) pg MCHC (31.0-36.0) g/dl RDW (11.0-16.0) % Plt Count (160-400) X10*3/uL MPV (9.4-12.4) fL Immature Gran % (Auto) (0.0-0.4) % Neut % (Auto) (45-73) % Lymph % (Auto) (20-40) % [place] % (Auto) (2-11) % Eos % (Auto) (0-4) % Baso % (Auto) (0-2) % Lymph # (Auto) (1.2-4.9) X10*3/uL [place] # (Auto) (0.1-1.2) X10*3/uL Eos # (Auto) (0.0-0.4) X10*3/uL Baso # (Auto) (0.0-0.2) X10*3/uL Abs Immat Gran (auto) (0.00-0.03) X10*3/uL Absolute Neuts (auto) (2.0-8.3) x10*3/uL Absolute Nucleated RBC (0.0-0.012) X10*3/uL Nucleated RBC % (auto) (0.0-0.2) /100WBC Sodium 136 (135-145) mmol/L Potassium 4.3 (3.3-5.1) mmol/L Chloride 105 (96-108) mmol/L Carbon Dioxide 16 L (22-29) mmol/L Anion Gap 19 (12-20) BUN 21 H (9-16) mg/dL Creatinine 1.03 (0.5-1.4) mg/dL Estim Creat Clear Calc TNP Estimated GFR > 60 Random Glucose 81 (60-115) mg/dL Estimat Average Glucose mg/dL Hemoglobin A1c % % Calcium 8.4 (8.4-10.2) mg/dL Iron (45-160) mcg/dL TIBC (228-428) mcg/dL % Saturation (15-50) % Unsat Iron Binding ug/dL Total Bilirubin 0.3 (0.0-1.0) mg/dL AST 67 H (5-37) U/L ALT 35 (0-40) U/L Alkaline Phosphatase 149 H (39-117) U/L Total Protein 10.6 H (6.5-8.0) g/dL Albumin 2.7 L (3.5-5.0) g/dL Triglycerides mg/dL Cholesterol mg/dL LDL Cholesterol, Calc mg/dl HDL Cholesterol mg/dL Vitamin B12 (200-900) pg/mL Folate (> or = 4.0) ng/mL Urine Color Urine Appearance Urine pH (5.0-8.0) Ur Specific [place] (1.005-1.025) Urine Protein (NEG-TRACE) MG/DL Urine Glucose (UA) (NEG) MG/DL Urine Ketones (NEG) MG/DL Urine Blood (NEG) Urine Nitrite (NEG) Ur Leukocyte Esterase (NEG) Urine RBC (0) /HPF Urine WBC (0-4) /HPF Ur Squamous Epith Cells /LPF Urine Bacteria /LPF Urine Opiates Screen (Not Detect) Urine Fentanyl Screen (Not Detect) Ur Barbiturates Screen (Not Detect) Ur Phencyclidine Scrn (Not Detect) Ur Amphetamines Screen (Not Detect) U Benzodiazepines Scrn (Not Detect) Urine Cocaine Screen (Not Detect) U Marijuana (THC) Screen (Not Detect) Ethyl Alcohol 159 mg/dL T.pallidum Ab (EIA) (Nonreactive) COVID-19 ([facility]) Negative (Negative) COVID-19 Clin Com See Note 12/19/21 12/19/21 12/19/21 Range/Units 12:43 12:43 12:43 WBC (4.8-10.8) X10*3/uL RBC (4.60-5.80) X10*6/uL Hgb (14.0-18.0) g/dl Hct (42.0-52.0) % MCV (80.0-98.0) fL MCH (27.0-33.0) pg MCHC (31.0-36.0) g/dl RDW (11.0-16.0) % Plt Count (160-400) X10*3/uL MPV (9.4-12.4) fL Immature Gran % (Auto) (0.0-0.4) % Neut % (Auto) (45-73) % Lymph % (Auto) (20-40) % [place] % (Auto) (2-11) % Eos % (Auto) (0-4) % Baso % (Auto) (0-2) % Lymph # (Auto) (1.2-4.9) X10*3/uL [place] # (Auto) (0.1-1.2) X10*3/uL Eos # (Auto) (0.0-0.4) X10*3/uL Baso # (Auto) (0.0-0.2) X10*3/uL Abs Immat Gran (auto) (0.00-0.03) X10*3/uL Absolute Neuts (auto) (2.0-8.3) x10*3/uL Absolute Nucleated RBC (0.0-0.012) X10*3/uL Nucleated RBC % (auto) (0.0-0.2) /100WBC Sodium (135-145) mmol/L Potassium (3.3-5.1) mmol/L Chloride (96-108) mmol/L Carbon Dioxide (22-29) mmol/L Anion Gap (12-20) BUN (9-16) mg/dL Creatinine (0.5-1.4) mg/dL Estim Creat Clear Calc Estimated GFR Random Glucose (60-115) mg/dL Estimat Average Glucose 108 mg/dL Hemoglobin A1c % 5.4 % Calcium (8.4-10.2) mg/dL Iron 21 L (45-160) mcg/dL TIBC 362 (228-428) mcg/dL % Saturation 6 L (15-50) % Unsat Iron Binding 341 ug/dL Total Bilirubin (0.0-1.0) mg/dL AST (5-37) U/L ALT (0-40) U/L Alkaline Phosphatase (39-117) U/L Total Protein (6.5-8.0) g/dL Albumin (3.5-5.0) g/dL Triglycerides 127 mg/dL Cholesterol 156 mg/dL LDL Cholesterol, Calc 93 mg/dl HDL Cholesterol 38 mg/dL Vitamin B12 652 (200-900) pg/mL Folate 11.2 (> or = 4.0) ng/mL Urine Color Urine Appearance Urine pH (5.0-8.0) Ur Specific [place] (1.005-1.025) Urine Protein (NEG-TRACE) MG/DL Urine Glucose (UA) (NEG) MG/DL Urine Ketones (NEG) MG/DL Urine Blood (NEG) Urine Nitrite (NEG) Ur Leukocyte Esterase (NEG) Urine RBC (0) /HPF Urine WBC (0-4) /HPF Ur Squamous Epith Cells /LPF Urine Bacteria /LPF Urine Opiates Screen (Not Detect) Urine Fentanyl Screen (Not Detect) Ur Barbiturates Screen (Not Detect) Ur Phencyclidine Scrn (Not Detect) Ur Amphetamines Screen (Not Detect) U Benzodiazepines Scrn (Not Detect) Urine Cocaine Screen (Not Detect) U Marijuana (THC) Screen (Not Detect) Ethyl Alcohol mg/dL T.pallidum Ab (EIA) (Nonreactive) COVID-19 (ALEJO) (Negative) COVID-19 Clin Com 12/19/21 Range/Units 12:43 WBC (4.8-10.8) X10*3/uL RBC (4.60-5.80) X10*6/uL Hgb (14.0-18.0) g/dl Hct (42.0-52.0) % MCV (80.0-98.0) fL MCH (27.0-33.0) pg MCHC (31.0-36.0) g/dl RDW (11.0-16.0) % Plt Count (160-400) X10*3/uL MPV (9.4-12.4) fL Immature Gran % (Auto) (0.0-0.4) % Neut % (Auto) (45-73) % Lymph % (Auto) (20-40) % [place] % (Auto) (2-11) % Eos % (Auto) (0-4) % Baso % (Auto) (0-2) % Lymph # (Auto) (1.2-4.9) X10*3/uL [place] # (Auto) (0.1-1.2) X10*3/uL Eos # (Auto) (0.0-0.4) X10*3/uL Baso # (Auto) (0.0-0.2) X10*3/uL Abs Immat Gran (auto) (0.00-0.03) X10*3/uL Absolute Neuts (auto) (2.0-8.3) x10*3/uL Absolute Nucleated RBC (0.0-0.012) X10*3/uL Nucleated RBC % (auto) (0.0-0.2) /100WBC Sodium (135-145) mmol/L Potassium (3.3-5.1) mmol/L Chloride (96-108) mmol/L Carbon Dioxide (22-29) mmol/L Anion Gap (12-20) BUN (9-16) mg/dL Creatinine (0.5-1.4) mg/dL Estim Creat Clear Calc Estimated GFR Random Glucose (60-115) mg/dL Estimat Average Glucose mg/dL Hemoglobin A1c % % Calcium (8.4-10.2) mg/dL Iron (45-160) mcg/dL TIBC (228-428) mcg/dL % Saturation (15-50) % Unsat Iron Binding ug/dL Total Bilirubin (0.0-1.0) mg/dL AST (5-37) U/L ALT (0-40) U/L Alkaline Phosphatase (39-117) U/L Total Protein (6.5-8.0) g/dL Albumin (3.5-5.0) g/dL Triglycerides mg/dL Cholesterol mg/dL LDL Cholesterol, Calc mg/dl HDL Cholesterol mg/dL Vitamin B12 (200-900) pg/mL Folate (> or = 4.0) ng/mL Urine Color Urine Appearance Urine pH (5.0-8.0) Ur Specific [place] (1.005-1.025) Urine Protein (NEG-TRACE) MG/DL Urine Glucose (UA) (NEG) MG/DL Urine Ketones (NEG) MG/DL Urine Blood (NEG) Urine Nitrite (NEG) Ur Leukocyte Esterase (NEG) Urine RBC (0) /HPF Urine WBC (0-4) /HPF Ur Squamous Epith Cells /LPF Urine Bacteria /LPF Urine Opiates Screen (Not Detect) Urine Fentanyl Screen (Not Detect) Ur Barbiturates Screen (Not Detect) Ur Phencyclidine Scrn (Not Detect) Ur Amphetamines Screen (Not Detect) U Benzodiazepines Scrn (Not Detect) Urine Cocaine Screen (Not Detect) U Marijuana (THC) Screen (Not Detect) Ethyl Alcohol mg/dL T.pallidum Ab (EIA) Nonreactive (Nonreactive) COVID-19 (ALEJO) (Negative) COVID-19 Clin Com <MADELINE Pina - Last Filed: 12/20/21 11:58> Discharge Plan Discharge Clinical Impression: Alcohol abuse <MADELINE Lundberg - Last Filed: 12/18/21 02:38> Patient Disposition: Still a Patient <MADELINE Lundberg Last Filed: 12/18/21 02:38> Instructions: Abuse of Alcohol (DC) <MADELINE Lundberg Last Filed: 12/18/21 02:38> Prescriptions: No Action No Known Home Meds <MADELINE Lundberg Last Filed: 12/18/21 02:38>
[2021-12-17 17:17] VITALS: BP 120/66; PULSE 89; RESP 18; TEMP 36.4; O2SAT 98
[2021-12-17 17:40] LABS: Appearance Urine CLEAR; Color Urine YELLOW; Glucose Urine UA NEG (NEG); Leukocyte Esterase Urine NEG (NEG); Nitrite Urine NEG (NEG); Specific Gravity - Urine 1.015 (1.005-1.025); UACC Culture Trigger NO; Urine Blood TRACE (NEG); Urine Ketones NEG (NEG); Urine Protein 2+ MG/DL (NEG-TRACE)
[2021-12-17 17:47] LABS: Amphetamine Screen Urine Not Detected (Not Detect); Barbiturates, Urine Not Detected (Not Detect); Benzodiazepines Screen Urine Not Detected (Not Detect); Cannabinoid Screen Urine Not Detected (Not Detect); Cocaine Screen Urine Not Detected (Not Detect); Fentanyl, urine Not Detected (Not Detect); Opiate Screen Urine Not Detected (Not Detect); Phencyclidine Screen Urine Not Detected (Not Detect)
[2021-12-17 17:52] LABS: Squamous Epithelial Cell Urine 1+ /LPF; WBC Urine 0-2 /HPF (0-4)
[2021-12-17 18:11] LABS: MANUAL DIFF FLAG NO
[2021-12-17 18:14] LABS: Basophils Absolute Auto 0.1 X10*3/uL (0.0-0.2); Basophils Percent Auto 1.4 % (0-2); Eosinophils Absolute Auto 0.3 X10*3/uL (0.0-0.4); Eosinophils Percent Auto 4.8 % (0-4); Hematocrit 26.9 % (42.0-52.0); Hemoglobin 8.1 g/dl (14.0-18.0); Imm Gran Abs Auto 0.01 X10*3/uL (0.00-0.03); Imm Gran Pct Auto 0.2 % (0.0-0.4); Lymphocytes Absolute Auto 2.9 X10*3/uL (1.2-4.9); Lymphocytes Percent Auto 52.3 % (20-40); Mean Corpuscular HGB Conc 30.1 g/dl (31.0-36.0); Mean Corpuscular Hemoglobin 25.8 pg (27.0-33.0); Mean Corpuscular Volume 85.7 fL (80.0-98.0); Mean Platelet Volume 8.8 fL (9.4-12.4); Monocytes Absolute Auto 0.3 X10*3/uL (0.1-1.2); Neutrophils Percent Auto 36.3 % (45-73); Platelet Count 274 X10*3/uL (160-400); Red Blood Count 3.14 X10*6/uL (4.60-5.80); Red Cell Distribution Width 17.9 % (11.0-16.0); White Blood Count 5.6 X10*3/uL (4.8-10.8)
[2021-12-17 18:29] LABS: COVID-19 Test Negative (Negative)
[2021-12-17 18:32] LABS: Ethanol 159 mg/dL
[2021-12-17 18:39] LABS: Alanine Aminotransferase 35 U/L (0-40); Albumin Level 2.7 g/dL (3.5-5.0); Alkaline Phosphatase 149 U/L (39-117); Anion Gap 19 (12-20); Aspartate Amino Transferase 67 U/L (5-37); Bilirubin Total 0.3 mg/dL (0.0-1.0); Blood Urea Nitrogen 21 mg/dL (9-16); Calcium 8.4 mg/dL (8.4-10.2); Carbon Dioxide 16 mmol/L (22-29); Chloride 105 mmol/L (96-108); Estimated Glomerular Filt Rate > 60; Glucose Random 81 mg/dL (60-115); Potassium 4.3 mmol/L (3.3-5.1); Sodium 136 mmol/L (135-145); Total Protein 10.6 g/dL (6.5-8.0)
[2021-12-17 21:46] VITALS: BP 120/66; PULSE 89; RESP 18; TEMP 36.4; O2SAT 98; BMI 27.4
[2021-12-17] MEDS: diphenhydrAMINE HCL 25 MG TABLET 50 MG PO (21:59)
[2021-12-17] MEDS: Ondansetron ODT 4 MG TAB.RAPDIS TRANSLINGU (21:59)
[2021-12-17] MEDS: Meclizine HCl 25 MG TABLET 50 MG PO (21:59)
--- NOTE | 2021-12-17 23:04 | PC.NURSE ---
Pt resting comfortably, pt complained of ear itch, Elliott PA examind pt and ordered benadryl to address it.
[2021-12-18] VITALS (11 sets, daily range): BP systolic 108–158; BP diastolic 54–126; PULSE 74–99; RESP 14–18; TEMP 36.4–36.7; O2SAT 95–98
[2021-12-18] MEDS: HaloperidoL 5 MG TABLET PO (01:31)
[2021-12-18] MEDS: NeoMYCIN/Polymyxin/HC Otic Sol BOTTLE 4 DROP EAR-LEFT ×5 (01:33→22:33)
[2021-12-18] MEDS: LORazepam 1 MG TABLET 2 MG PO (02:21)
--- NOTE | 2021-12-18 06:01 | PC.NURSE ---
Vital signs deferred this morning to promote pt sleep.
--- NOTE | 2021-12-18 08:57 | PHA.MEDREC ---
Pharmacy Consult ? Medication Reconciliation Pharmacy has completed the medication reconciliation. Patient difficult to understand. Patient reports using [facility]. He reported that he goes to the [facility] on the [address] [place]. After mutliple people asking, he said [facility] [address]. I called [facility] who reported there were no medications at any [facility] Tried [facility], they reported no [facility] in [facility]. Kari Espinoza, MarybethD
--- NOTE | 2021-12-18 09:43 | PC.NURSE ---
pt seen by curtis (care team) pt aware of plan of care.
--- NOTE | 2021-12-18 10:51 | MHC.CARE ---
CARE Team spoke with patient in ED bed 16, he had limited capacity to engage in a meaningful conversation, was preoccupied by pain in his ear due to an infection, speech mostly nonsensical but was able to offer some facts. Has three children that live locally, left him and is staying with one of them, owed a significant amount of money to the bank for mortgage but said he did pay the total amount. Unable to discuss mental health symptoms denied suicidal ideation or history of attempts. Call to [facility] to get more information, patient was evaluated in his home yesterday and recommended level of care was inpatient psychiatric due to declined mental status, emotional dysregulation, health concerns, inability to care for self or ambulate safely. Providers updated about status.
--- NOTE | 2021-12-18 14:18 | MHC.CM.ED ---
Received case management consult from Kalyn CORREA. Patient came to the ER under a section 12. Patient was showing an elevated ETOH level at that time. Per BHN and Care Team, patient is cleared from their point of views. Ruby from Recovery Team saw patient. Patient has a history of dementia. There is a question of patient having the capacity to make his own decisons. Kalyn CORREA aware and psych consult to determine if patient has the capacity to make his own decisions. Patient has [facility]. Per Margoth at [facility], pcp is Samir Warner. [facility] has a HCP and will send it to CM. Waiting for psych consult before proceeding. Continue to monitor for d/c needs.
--- NOTE | 2021-12-18 14:53 | MHC.RECOVRN ---
Met with pt in ED16 after consult placed to CARE Team for alcohol use. Pt sitting in bed, awake, alert, engaged in conversation. Pt very difficult to understand at times due to mumbling, tangentiality, and disorientation. Pt does report drinking Jo-Ann, 2 cups daily since 1942 . Pt denies experiencing withdrawal symptoms with this type of alcohol. Pt reports that when drinking other types of alcohol having experienced tremors upon cessation. Pt does not appear to be in withdrawal at this time, denies withdrawal symptoms. Full consult unable to be completed due to patient's mental status. Discussed with CM and Radha Christian APRN.
[2021-12-19 01:39] VITALS: BP 131/58; PULSE 83; RESP 17; TEMP 36.6; O2SAT 98
--- NOTE | 2021-12-19 06:33 | PC.NURSE ---
ambulating to and from bathroom w steady gait using assistive device
--- NOTE | 2021-12-19 08:43 | MHC.CM.ED ---
Patient remains in ER. [facility] does not have a HCP on file. Psych consult is still pending to determine if patient has the capacity to make his own decisions. Continue to monitor for d/c needs.
--- NOTE | 2021-12-19 08:57 | PC.NURSE ---
Pt is Alert, calm cooperative and pleasant, oriented to person and place, forgetful of date at this time but reoriented by this RN. No complaints of pain, ambulating to the BR with steady gait. Awaiting psych eval for mental capacity. Call nettles within reach, will continue to monitor.
[2021-12-19] MEDS: NeoMYCIN/Polymyxin/HC Otic Sol BOTTLE 4 DROP EAR-LEFT ×4 (10:34→22:02)
[2021-12-19 10:37] VITALS: BP 135/66; PULSE 91; RESP 16; O2SAT 98
--- NOTE | 2021-12-19 11:45 | PM.PSYCN ---
History of Present Illness Date of Service: 12/19/2021 Chief Complaint: SEC 12 BY N,ALCOHOLISM,NON MED COMPLIANT PER EMS Reason for Consult: ? ability to live independently/care for self Requesting physician: Denisha Pelaez Discussed with referring provider: Yes Sources of Information: patient interviewed, chart reviewed and crisis/core team assessment reviewed HPI Narrative: Mr. Mock is a 76 year-old male brought via EMS on section 12. Pt with hx of alcohol. His BAL on admission was 149. Utox negative. CBC notable for normocytic anemia. CMP notable for increase BUN, elevated AST, elevated Alkaline phospotase. Iron is low. B12 >600. Lipid panel wnl. Head CT- shows generalized atrophy and periventricular white matter changes. Prior to meeting with pt this magnetic tape typewriter operator met with ED child support case officer- Autumn. CW reports providers from community from [facility] concern about his execissive drinking and apparently his ability to care for himself. This magnetic tape typewriter operator met with pt who reports he has been drinking daily about 1-2 glasses of cognac for about 40 years. He reports he has no intention of quitting. He has limited insight into effects of alcohol on different aspects of his health and mood stating everybody drinks. Pt initially very irritable, asking this magnetic tape typewriter operator to leave me alone, I just want to go home. He later calm down and agreed to continue conversation when informed that his outpatient providers were concern in terms of his ability to care for himself. Pt is oriented to month, year, date, knows he is in [place] but reported that he thought he was at [facility] [place]. He does not know why he was brought in to the hospital (note initially for SI on section 12, cleared by [facility], also medically clear at this point). Pt reports he lives with his . He reports he has his own house. he has 4 adult children who are but come to visit him. No collateral information from family yet. highway worker to follow up with family in terms of safe discharge planning. This magnetic tape typewriter operator completed a quick clock draw test to get a quick and gross idea of his executive function and visuo spatial. Pt was able to placed all numbers, slightly out of place (when looking at quadrant), he appeared to have some difficulty placing hands of clock and got frustrated when he realized was not sure how to place hands at 10 past 11. When informed that he has anemia- pt states that's not true, I am fine, dismissing medical statement. Past Psychiatric History: Inpatient: none OP: none Suicide attempts: denies Medical Evaluation Reviewed: Yes Diagnostics Vital Signs (24Hr): Vital Signs - 24 hr 12/19/21 19:19 12/19/21 22:01 12/19/21 23:32 Temperature 98.1 F 98.3 F Pulse Rate 103 H 100 116 H Respiratory Rate 16 20 16 Blood Pressure 145/70 H 141/69 H 147/72 H Pulse Oximetry 97 97 97 Oxygen Delivery Method Room Air Room Air Room Air 12/20/21 07:49 12/20/21 11:44 Temperature Pulse Rate 100 105 H Respiratory Rate 16 18 Blood Pressure 138/74 150/68 H Pulse Oximetry 98 97 Oxygen Delivery Method Room Air Room Air BMI result Body Mass Index 27.4 Labs Results: 12/17/21 18:07 12/17/21 18:07 Labs: Laboratory Results - last 48 hr 12/19/21 12/19/21 12/19/21 12:43 12:43 12:43 Estimat Average Glucose 108 Hemoglobin A1c % 5.4 Iron 21 L TIBC 362 % Saturation 6 L Unsat Iron Binding 341 Triglycerides 127 Cholesterol 156 LDL Cholesterol, Calc 93 HDL Cholesterol 38 Vitamin B12 652 Folate 11.2 T.pallidum Ab (EIA) 12/19/21 12:43 Estimat Average Glucose Hemoglobin A1c % Iron TIBC % Saturation Unsat Iron Binding Triglycerides Cholesterol LDL Cholesterol, Calc HDL Cholesterol Vitamin B12 Folate T.pallidum Ab (EIA) Nonreactive Imaging Radiology Impressions: ITS Impressions Head CT 12/19/21 13:50 IMPRESSION: No acute intracranial findings. Generalized atrophy and nonspecific periventricular white matter disease. Findings were communicated to Denisha Pelaez by telephone on 12/19/2021 at 3:48 PM. Mental Status Exam Mental Status Exam Narrative: Appearance: thin, wearing hospital gown, fair hygiene in NAD Behavior:initially irritable, then agreable to talk with this magnetic tape typewriter operator psychomotor: no agitation or retardation noted Speech:interview conducted in zambian- he appears to understand and express himself appropriately. clear, normal rate/rhythm, spontaneous Thought process:tangential at times, no loose associations Thought content: no signs of psychosis, wanting to go home, does not think alcohol is a problem. Mood: okay Affect: irritable SI:none HI:none VH/AH:none Delusions:none Insight/judgment:poor x 2. Memory/cog: alert, oriented to month, year, knows this is hospital, knows he is in [place] but thinks this is [facility] [place]. Suspect underlying cognitive impairment but the extend and pattern of impairment has to be determine by outpatient work up. Medications Medications Current Medications Neomycin/Polymyxin/Hydrocortisone (Neomycin/Polymyxin/Hc Otic Liyah Bottle) 4 drop EAR-LEFT QID [facility] Last Admin: 12/20/21 10:02 Dose: 4 drop Pharmacy Consult (Consult Rx Perform Med Rec) 1 each MISCELLANE ONCE PRN PRN Reason: Consult order Pyridoxine HCl (Pyridoxine Hcl (Vitamin B6) 50 Mg Tablet) 50 mg PO DAILY [facility] Last Admin: 12/20/21 11:44 Dose: 50 mg Thiamine HCl (Thiamine Hcl 100 Mg Tablet) 200 mg PO DAILY [facility] Last Admin: 12/20/21 10:02 Dose: 200 mg Allergies Allergies Allergy/AdvReac Type Severity Reaction Status Date / Time No Known Allergies Allergy Verified 12/17/21 16:38 Assessment & Plan Assessment & Plan (1) Alcohol dependence: Status: Acute Code(s): F10.20 - Alcohol dependence, uncomplicated Plan Mr. Mock is a 76 y/o male with hx of alcohol use disorder, severe dependence, brought initially on section 12 for SI. He has been cleared by [facility]. I concur with this determination: there is not evidence of imminent safety risk due to homicidal or suicidal nor acute psychotic symptoms for inpatient level of care. This magnetic tape typewriter operator was asked to assessed patient's for ability to live in community/safely- which entails a much more extensive and global assessment. At this point, focusing on safe discharge, I would recommend child support case officer to contact family- hear their concerns if any. He may have difficulty managing medication and following/coordinating medical appointments which [facility] may be helpful as well as nurse case management from [facility]. I would recommend family bring Mr. Mock for full work up for neurocognitive disorder and assess more thoroughly his impairments and safety at the home. I will defer for his ocean transportation intermediary outpatient providers to determine if guardianship is warranted. At this point- there is no medical condition that needs to be treated. This assessment is not about capacity to make medical decisions as no recommended treatment has been advised to Mr. Mock that he is refusing or accepting. Consider recommending CCA to complete HCP- if he has not done so already. I spent minutes with the patient and/or on the patient floor today, greater than?50% of which was spent counseling/coordinating care.
--- NOTE | 2021-12-19 12:07 | MHC.CM.ED ---
Received message that Paola from [facility] was requesting a telephone call. T/w spoke with Paola via telephone at [phone]. Paola is patient's community health worker through [facility]. Paola is not sure if patient's has a HCP. Patient's ex-daughter in law was at patient's home on Friday when EMS was activated. 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 Family and CCA team is concerned about patient. Patient typically will [facility] when he found drunk. When he rishi up he is discharged home. Paola is upset that work up for dementia hasn't been done when he has come to the ER. T/W explained patient was seen by BHN, Care team and recovery team. Also explained psych consult was ordered to determine if patient has the capacity to make his own decisions. Paola is concerned patient will go home and start drinking alcohol. T/w explained patient would not be discharged before it was determined if patient has the capacity to make decisions. If patient was found to have capacity, patient will be allowed to be discharged home if that what he wants. Paola verbalizes understanding and will pass info to his CCA team. Continue to monitor for d/c needs.
[2021-12-19 13:11] LABS: Cholesterol 156 mg/dL; HDL Cholesterol 38 mg/dL; Iron 21 mcg/dL (45-160); LDL Cholesterol Calculated 93 mg/dl; Percent Iron Saturation 6 % (15-50); Total Iron Binding Capacity 362 mcg/dL (228-428); Triglycerides 127 mg/dL; Unsaturated Iron Binding 341 ug/dL
[2021-12-19 13:24] LABS: Estimated Average Glucose 108 mg/dL; Hemoglobin A1C 76.7295 umol/L; Hemoglobin A1c % 5.4 %
[2021-12-19 14:18] LABS: Syphilis Screen Nonreactive (Nonreactive)
[2021-12-19 14:31] LABS: Folate 11.2 ng/mL (> or = 4.0); Vitamin B12 652 pg/mL (200-900)
[2021-12-19] MEDS: Thiamine HCL 100 MG TABLET 200 MG PO (15:10)
[2021-12-19] MEDS: Pyridoxine HCl (Vitamin B6) 50 MG TABLET PO (15:10)
--- NOTE | 2021-12-19 18:35 | MHC.CM.ED ---
Awaiting psych consult note. Verbal report that pt does have capacity to make decisions. Expect d/c once report is complete. CM to follow for d/c needs.
[2021-12-19 19:19] VITALS: BP 145/70; PULSE 103; RESP 16; TEMP 36.7; O2SAT 97
--- NOTE | 2021-12-19 19:20 | PC.NURSE ---
Addendum entered by Reina Farfan 12/19/21 22:50: report given to EVE Olvera Original Note: report received from EVE Najera. pt is alert and oriented. resting in bed. no signs of acute distress notice. breathing equally unlabored. denies any chest pain or sob
[2021-12-19 22:01] VITALS: BP 141/69; PULSE 100; RESP 20; O2SAT 97
--- NOTE | 2021-12-19 23:21 | PC.NURSE ---
Addendum entered by Vida Gatica RN 12/19/21 23:38: Psych eval today determined pt is competent and able to make his own decisions. Reevaluation in AM for discharge. Pt can decide that he wants to go home. Original Note: Pt brought in from home with ETOH and high BAL. Section 12 written for pt.
[2021-12-19 23:32] VITALS: BP 147/72; PULSE 116; RESP 16; TEMP 36.8; O2SAT 97
--- NOTE | 2021-12-20 06:29 | PC.NURSE ---
Pt remained calm and cooperative, slept throughout the night. Pt is pleasant, vitals stable, A&O. Pt on video monitoring. Pt waiting for psych consult to be released to home. No pertinent interventions or events overnight.
[2021-12-20 07:49] VITALS: BP 138/74; PULSE 100; RESP 16; O2SAT 98
--- NOTE | 2021-12-20 08:15 | PC.NURSE ---
ambulatory to br with cane. pt is independent with adl's and steady on feet with minimal assist for transfer out of bathroom. no tremor. axox3. denies si. awaits reeval from crisis this am.
[2021-12-20] MEDS: Thiamine HCL 100 MG TABLET 200 MG PO (10:02)
[2021-12-20] MEDS: NeoMYCIN/Polymyxin/HC Otic Sol BOTTLE 4 DROP EAR-LEFT ×2 (10:02→12:38)
[2021-12-20 11:44] VITALS: BP 150/68; PULSE 105; RESP 18; O2SAT 97
[2021-12-20] MEDS: Pyridoxine HCl (Vitamin B6) 50 MG TABLET PO (11:44)
[2021-12-20 12:37] VITALS: BP 140/71; PULSE 98; RESP 18; TEMP 37.2; O2SAT 97
--- NOTE | 2021-12-20 13:12 | MHC.CM.ED ---
Addendum entered by Cecelia Freitas 12/20/21 13:47: Received telephone call from Julia. [facility] does not have any contact info for patient's or son. EVE Gregory aware and will try to get a telephone number from patient. Also, apparently patient couldn't find his apartment keys prior to coming to the hospital. Transportation will not be able to be arranged until it is verified that patient will be able to get into his apartment. Original Note: Patient remains in ER. Per DURGA Aquino, patient cane make his own decisions. Met with patient. Patient wants to go home. Patient is unsure how he will get home. He is not sure if his will be home. T/W spoke with patient's manager long term care, Julia via telephone [phone]. Julia will reach out to patient's son and get back to . Continue to monitor for d/c needs.
--- NOTE | 2021-12-20 16:11 | MHC.CM.ED ---
Addendum entered by Sarah Mix 12/20/21 19:23: Son is aware that pt has refused any recovery supports. Addendum entered by Sarah Mix 12/20/21 19:21: Son arrived to transport pt home. Per son, pt lives with his mother and he has family supports. Pt has a safe discharge home. Original Note: CM met with patient with regards to transportation home. Pt pleasant and alert. States his son is picking him up. When CM asked about what time, pt called his son. CM spoke with son. Explained that pt was medically stable and cleared to go home.Son asked if father had any blood clots. CM reiterated that all testing was negative and his father was cleared for discharge. Son states he will cotton picking machine operator pt about 5pm. CM told son to come to the [facility] ED, [facility]. Pt given warm blanket for comfort. Understands his son will be driving him home. RN and Provider aware.
--- NOTE | 2021-12-20 17:41 | PC.NURSE ---
pt has been resting queitly on whitt bed. son present for discharge. pt needed assist to wc. declining detox. son will look into section 35.
== END 2021-12-20 17:43 | disposition home or self-care (01) ==
PROVIDERS: Physician Assistant; Social Worker; Emergency Provider Internal Medicine; PCP Internal Medicine
DX: F10.220 Alcohol dependence with intoxication, uncomplicated (principal); Y90.6 Blood alcohol level of 120-199 mg/100 ml; D64.9 Anemia, unspecified; H92.02 Otalgia, left ear; F17.200 Nicotine dependence, unspecified, uncomplicated; Z20.822 Contact with and (suspected) exposure to COVID-19
CPT/HCPCS: 36415; 70450; 80053; 80061; 80307; 81001; 82077; 82607; 82746; 83036; 83540; 85025; 86780; 87635; 99285; Q0163